=== PATIENT | male | born 1965 | race Caucasian/White ===

== ENCOUNTER 2017-09-14 12:36 | Emergency (ER) | payer MEDICAID ==
[~2017-09-14] VITALS: Ht 188 cm; Wt 84.8 kg
[~2017-09-14 12:36] MED LIST: ALPRAZOLAM; ALPRAZOLAM ER1 MG PO; AUGMENTIN 875875 M1; BACLOFEN; BACLOFEN20 MG PO; BACTRIM DS TAB1 EACH PO; CARAFATE 1 GM TA1 G1 PO; CHANTIX1 MG PO; CITRATE OF MAG296 ML PO; GABAPENTIN; GABAPENTIN 100100 MG; HCTZ; HYDROCODONE-AP1 EAC6 PO; IBUPROFEN 800800 M1 PO; KETOROLAC 0.5% E5 ML OP; LORTAB 5 MG/5001 TA1 PO; LYRICA 50 MG50 MG PO; MEDROLDOSEPACK PO; MIRALAX17 GM PO; MOBIC15 MG PO; MOBIC7.5 MG; NAPROSYN500 MG PO; NASAL SPRAY30 ML; NEURONTIN 300M300 M2 PO; ONDANSETRON HCL4 M2 PO; OXYCONTIN; OXYCONTIN CR 1010 MG PO; OXYCONTIN CR 2020 MG PO; OXYCONTIN10 M1; OXYCONTIN15 MG PO; OXYIR5 MG; PAXIL CR12.5 MG PO; PERCOCET 5-3251 EACH PO; PHENERGAN 25 MG25 M1 PO; PHENERGAN 25 MG25 MG; POLYMYXIN B/TMP10 ML OPHTHALMIC; PRILOSEC40 MG PO; PRINIVIL20 MG PO; RANITIDINE HCL300 M1 PO; ROXICODONE15 M1 PO; ROXICODONE30 M1 PO; SENOKOT-S1 TA1 PO; SKELAXIN 800 M800 M1 PO; VICODIN 5-5001 EACH PO; ZANTAC 150MG T150 MG; ZOFRAN4 MG PO; ZPAK PO
[2017-09-14 12:44] VITALS: BP 139/85
[2017-09-14] MEDS ORDERED: FLONASE 0.05%50 MCG NASAL (12:47)
[2017-09-14] MEDS ORDERED: TESTOSTERONE IM (12:49)
[2017-09-14] MEDS ORDERED: KEFLEX500 M1 PO (13:03)
[2017-09-14] MEDS ORDERED: BACTRIM DS TAB1 EACH PO (13:03)
== END 2017-09-14 13:12 | disposition home or self-care (01) ==
LOC: M.ERS 12:36
DX: L03.012 Cellulitis of left finger (principal); F32.9 Major depressive disorder, single episode, unspecified; M19.90 Unspecified osteoarthritis, unspecified site; G89.29 Other chronic pain; Z85.118 Personal history of other malignant neoplasm of bronchus and lung; Z86.14 Personal history of Methicillin resistant Staphylococcus aureus infection; Z86.19 Personal history of other infectious and parasitic diseases; Z88.8 Allergy status to other drugs, medicaments and biological substances

== ENCOUNTER 2017-11-20 16:47 | Emergency (ER) | payer MEDICAID ==
[~2017-11-20] VITALS: Ht 188 cm; Wt 78.0 kg
[~2017-11-20 16:47] MED LIST changes: +FLONASE 0.05%50 MCG NASAL; +KEFLEX500 M1 PO; +TESTOSTERONE IM
[2017-11-20] MEDS ORDERED: DOXYCYCLINE 10100 MG PO (17:24)
[2017-11-20 17:45] LABS: URINE BILIRUBIN NEGATIVE (Negative); URINE BLOOD NEGATIVE (Negative); URINE CLARITY CLEAR; URINE COLOR YELLOW; URINE GLUCOSE-RANDOM NEGATIVE (Negative); URINE KETONES NEGATIVE (Negative); URINE LEUKOCYTES-REFLEX NEGATIVE (Negative); URINE NITRITE-REFLEX NEGATIVE (Negative); URINE PROTEIN NEGATIVE (Negative); URINE SPECIFIC GRAVITY 1.015 (1.005-1.030); URINE UROBILINOGEN 0.2 E.U./dl (0.2-1.0)
[2017-11-20 18:38] VITALS: BP 117/70
== END 2017-11-20 18:40 | disposition home or self-care (01) ==
LOC: M.ERS 16:47
PROVIDERS: Emergency Medicine Emergency Medical Services
DX: N45.1 Epididymitis (principal); N43.3 Hydrocele, unspecified; F32.9 Major depressive disorder, single episode, unspecified; M19.90 Unspecified osteoarthritis, unspecified site; N40.0 Benign prostatic hyperplasia without lower urinary tract symptoms; Z88.8 Allergy status to other drugs, medicaments and biological substances

== ENCOUNTER 2017-11-23 11:32 | Emergency (ER) | payer MEDICAID ==
[~2017-11-23] VITALS: Ht 190.5 cm; Wt 79.4 kg
[~2017-11-23 11:32] MED LIST changes: +DOXYCYCLINE 10100 MG PO
[2017-11-23 12:02] LABS: ABSOLUTE EOSINOPHILS 0.1 thou/uL (0.0-0.7); ABSOLUTE LYMPHOCYTES 2.1 thou/uL (0.8-5.3); ABSOLUTE MONOCYTES 0.4 thou/uL (0.0-1.2); ABSOLUTE NEUTROPHILS 4.2 thou/uL (1.6-8.1); BASOPHILS 0.5 %; EOSINOPHILS 1.9 %; HEMATOCRIT 45.1 % (42.0-52.0); HEMOGLOBIN 15.3 gm/dL (14.0-18.0); LYMPHOCYTES 30.4 %; MCHC 33.9 g/dL (28.0-37.0); MCV 94.3 fL (80.0-100.0); MONOCYTES 6.1 %; MPV 6.8 fl. (7.2-11.1); NUCLEATED RBCS 0 /100WBC; PLATELET COUNT* 281 thou/uL (150-400); POLYS 61.1 %; RBC 4.78 mil/uL (4.50-6.00); RDW-CV 12.8 % (10.5-14.5); WBC 6.9 thou/uL (4.0-11.0)
[2017-11-23 12:02] LABS: URINE BILIRUBIN NEGATIVE (Negative); URINE BLOOD NEGATIVE (Negative); URINE CLARITY CLEAR; URINE COLOR YELLOW; URINE GLUCOSE-RANDOM NEGATIVE (Negative); URINE KETONES NEGATIVE (Negative); URINE LEUKOCYTES-REFLEX NEGATIVE (Negative); URINE NITRITE-REFLEX NEGATIVE (Negative); URINE PROTEIN NEGATIVE (Negative); URINE UROBILINOGEN 0.2 E.U./dl (0.2-1.0)
[2017-11-23 12:10] LABS: CALCIUM 8.7 mg/dL (8.5-10.1); CREATININE 0.9 mg/dL (0.6-1.3); POTASSIUM 3.9 mmol/L (3.5-5.1)
[2017-11-23 12:15] LABS: ALBUMIN 3.6 g/dL (3.4-5.0); TOTAL BILIRUBIN 0.6 mg/dL (<0.1-1.0); TOTAL PROTEIN 7.3 g/dL (6.4-8.2)
[2017-11-23 14:15] VITALS: BP 95/58
== END 2017-11-23 14:19 | disposition home or self-care (01) ==
LOC: M.ERS 11:32
PROVIDERS: Physician Assistant
DX: N50.811 Right testicular pain (principal); R10.31 Right lower quadrant pain; F32.9 Major depressive disorder, single episode, unspecified; M19.90 Unspecified osteoarthritis, unspecified site; F17.210 Nicotine dependence, cigarettes, uncomplicated; Z86.19 Personal history of other infectious and parasitic diseases; Z85.118 Personal history of other malignant neoplasm of bronchus and lung; Z86.14 Personal history of Methicillin resistant Staphylococcus aureus infection; Z88.8 Allergy status to other drugs, medicaments and biological substances

== ENCOUNTER 2021-06-22 11:47 | Emergency (ER) | payer MEDICAID ==
[~2021-06-22] VITALS: Ht 188 cm; Wt 87.1 kg
[2021-06-22 14:22] LABS: URINE BILIRUBIN NEGATIVE (Negative); URINE BLOOD NEGATIVE (Negative); URINE CLARITY CLEAR; URINE COLOR YELLOW; URINE GLUCOSE-RANDOM NEGATIVE (Negative); URINE KETONES NEGATIVE (Negative); URINE LEUKOCYTES-REFLEX NEGATIVE (Negative); URINE NITRITE-REFLEX NEGATIVE (Negative); URINE PROTEIN NEGATIVE (Negative); URINE SPECIFIC GRAVITY <= 1.005 (1.005-1.030); URINE UROBILINOGEN 0.2 E.U./dl (0.2-1.0)
[2021-06-22 14:25] LABS: ABSOLUTE EOSINOPHILS 0.1 thou/uL (0.0-0.7); ABSOLUTE LYMPHOCYTES 1.7 thou/uL (0.8-5.3); ABSOLUTE MONOCYTES 0.4 thou/uL (0.0-1.2); ABSOLUTE NEUTROPHILS 2.8 thou/uL (1.6-8.1); BASOPHILS 0.8 %; EOSINOPHILS 1.7 %; HEMATOCRIT 44.8 % (42.0-52.0); HEMOGLOBIN 15.3 gm/dL (14.0-18.0); LYMPHOCYTES 33.3 %; MCH 31.9 pg (26.0-34.0); MCHC 34.2 g/dL (28.0-37.0); MCV 93.2 fL (80.0-100.0); MONOCYTES 8.3 %; MPV 7.8 fl. (7.2-11.1); NUCLEATED RBCS 0 /100WBC; PLATELET COUNT* 199 thou/uL (150-400); POLYS 55.9 %; RBC 4.81 mil/uL (4.50-6.00); RDW-CV 12.9 % (10.5-14.5)
[2021-06-22 14:32] LABS: CALCIUM 8.3 mg/dL (8.5-10.1); CREATININE 0.9 mg/dL (0.6-1.3); POTASSIUM 4.2 mmol/L (3.5-5.1)
[2021-06-22 14:36] LABS: ALBUMIN 3.5 g/dL (3.4-5.0); TOTAL BILIRUBIN 0.5 mg/dL (<0.1-1.0); TOTAL PROTEIN 7.1 g/dL (6.4-8.2)
[2021-06-22 15:49] VITALS: BP 113/68
== END 2021-06-22 15:50 | disposition home or self-care (01) ==
LOC: M.ERS 11:47
PROVIDERS: Physician Assistant
DX: K46.9 Unspecified abdominal hernia without obstruction or gangrene (principal); F32.9 Major depressive disorder, single episode, unspecified; M19.90 Unspecified osteoarthritis, unspecified site; F17.210 Nicotine dependence, cigarettes, uncomplicated; Z86.73 Personal history of transient ischemic attack (TIA), and cerebral infarction without residual deficits; Z86.14 Personal history of Methicillin resistant Staphylococcus aureus infection; Z85.118 Personal history of other malignant neoplasm of bronchus and lung; Z79.2 Long term (current) use of antibiotics; Z79.899 Other long term (current) drug therapy; Z88.8 Allergy status to other drugs, medicaments and biological substances

== ENCOUNTER 2021-07-02 12:49 | Emergency (ER) | payer MEDICAID ==
[~2021-07-02] VITALS: Ht 188 cm; Wt 87.1 kg
[2021-07-02] MEDS ORDERED: OXYCONTIN20 M1 PO (13:08)
[2021-07-02] MEDS ORDERED: TESTOSTERONE CYPIONA (13:09)
[2021-07-02] MEDS ORDERED: PROAIR HFA8.5 GM INH (13:09)
[2021-07-02] MEDS ORDERED: PROPRANOLOL 20M20 M1 PAD (13:09)
[2021-07-02] MEDS ORDERED: NORVASC5 MG PO (13:10)
[2021-07-02] MEDS ORDERED: PERCOCET 5-3251 EACH PO (13:10)
[2021-07-02] MEDS ORDERED: MOMETASONE FURO17 GM NASAL (13:10)
[2021-07-02 13:56] LABS: URINE BILIRUBIN NEGATIVE (Negative); URINE BLOOD NEGATIVE (Negative); URINE CLARITY CLEAR; URINE COLOR YELLOW; URINE GLUCOSE-RANDOM NEGATIVE (Negative); URINE KETONES NEGATIVE (Negative); URINE LEUKOCYTES NEGATIVE (Negative); URINE NITRITE NEGATIVE (Negative); URINE PROTEIN NEGATIVE (Negative); URINE SPECIFIC GRAVITY 1.025 (1.005-1.030); URINE UROBILINOGEN 0.2 E.U./dl (0.2-1.0)
[2021-07-02 14:35] LABS: ABSOLUTE BASOPHILS 0.1 thou/uL (0.0-0.2); ABSOLUTE EOSINOPHILS 0.1 thou/uL (0.0-0.7); ABSOLUTE LYMPHOCYTES 1.8 thou/uL (0.8-5.3); ABSOLUTE MONOCYTES 0.8 thou/uL (0.0-1.2); ABSOLUTE NEUTROPHILS 3.7 thou/uL (1.6-8.1); EOSINOPHILS 1.9 %; HEMOGLOBIN 15.6 gm/dL (14.0-18.0); LYMPHOCYTES 28.4 %; MCV 94.2 fL (80.0-100.0); MONOCYTES 12.2 %; MPV 7.9 fl. (7.2-11.1); NUCLEATED RBCS 0 /100WBC; PLATELET COUNT* 147 thou/uL (150-400); POLYS 56.5 %; RBC 4.89 mil/uL (4.50-6.00); RDW-CV 12.9 % (10.5-14.5); WBC 6.5 thou/uL (4.0-11.0)
[2021-07-02 14:54] LABS: CALCIUM 8.7 mg/dL (8.5-10.1); CREATININE 0.9 mg/dL (0.6-1.3)
[2021-07-02 14:59] LABS: ALBUMIN 3.7 g/dL (3.4-5.0); TOTAL BILIRUBIN 0.4 mg/dL (<0.1-1.0); TOTAL PROTEIN 7.4 g/dL (6.4-8.2)
[2021-07-02 16:32] VITALS: BP 120/79
== END 2021-07-02 16:33 | disposition home or self-care (01) ==
LOC: M.ERS 12:49
PROVIDERS: Emergency Medicine Emergency Medical Services
DX: G89.18 Other acute postprocedural pain (principal); R10.33 Periumbilical pain; B19.20 Unspecified viral hepatitis C without hepatic coma; I10 Essential (primary) hypertension; J44.9 Chronic obstructive pulmonary disease, unspecified; M19.90 Unspecified osteoarthritis, unspecified site; F32.9 Major depressive disorder, single episode, unspecified; F17.210 Nicotine dependence, cigarettes, uncomplicated; Z98.890 Other specified postprocedural states; Z79.51 Long term (current) use of inhaled steroids; Z79.899 Other long term (current) drug therapy; Z88.8 Allergy status to other drugs, medicaments and biological substances

== ENCOUNTER 2021-07-04 08:31 | Emergency (ER) | payer MEDICAID ==
[~2021-07-04] VITALS: Ht 188 cm; Wt 81.7 kg
[~2021-07-04 08:31] MED LIST changes: +MOMETASONE FURO17 GM NASAL; +NORVASC5 MG PO; +OXYCONTIN20 M1 PO; +PROAIR HFA8.5 GM INH; +PROPRANOLOL 20M20 M1 PAD; +TESTOSTERONE CYPIONA
[2021-07-04 09:23] LABS: ABSOLUTE EOSINOPHILS 0.1 thou/uL (0.0-0.7); ABSOLUTE LYMPHOCYTES 1.4 thou/uL (0.8-5.3); ABSOLUTE MONOCYTES 0.6 thou/uL (0.0-1.2); ABSOLUTE NEUTROPHILS 4.6 thou/uL (1.6-8.1); BASOPHILS 0.6 %; EOSINOPHILS 1.6 %; HEMATOCRIT 45.1 % (42.0-52.0); HEMOGLOBIN 15.5 gm/dL (14.0-18.0); LYMPHOCYTES 20.2 %; MCH 32.1 pg (26.0-34.0); MCHC 34.4 g/dL (28.0-37.0); MCV 93.3 fL (80.0-100.0); MONOCYTES 8.8 %; MPV 7.5 fl. (7.2-11.1); NUCLEATED RBCS 0 /100WBC; PLATELET COUNT* 213 thou/uL (150-400); POLYS 68.8 %; RBC 4.83 mil/uL (4.50-6.00); WBC 6.7 thou/uL (4.0-11.0)
[2021-07-04 09:27] LABS: CALCIUM 8.2 mg/dL (8.5-10.1); CREATININE 0.9 mg/dL (0.6-1.3); POTASSIUM 4.2 mmol/L (3.5-5.1)
[2021-07-04 09:31] LABS: ALBUMIN 3.6 g/dL (3.4-5.0); TOTAL BILIRUBIN 0.5 mg/dL (<0.1-1.0); TOTAL PROTEIN 7.2 g/dL (6.4-8.2)
[2021-07-04 10:10] VITALS: BP 118/86
--- NOTE | 2021-07-04 10:12 | EKG ---
[place] [address] ELECTROCARDIOGRAM REPORT Name: JAN RAMÍREZ Room: [facility]#: [id number] Admission: 07/04/21 Attend Phys: Discharge: 07/04/21 Date of : 69 Date of Service: 07/04/21923 Report #: [id number] THIS REPORT FOR: //name// [facility] ED Test Date: 2021-07-04 Test Time: 09:24:58 Pat Name: JAN RAMÍREZ Department: Room: Gender: Main [employer]ier: PHILLY : 1965 Requested By: Garry Denise Order Number: [id number] MD: Romel Dean Measurements Intervals [place] Rate: 78 P: 37 NE: 183 QRS: 16 QRSD: 93 T: 42 QT: 361 QTc: 412 Interpretive Statements Sinus rhythm Consider left atrial enlargement septal infarct, age indeterminate Compared to ECG 12/27/2015 20:14:28 Myocardial infarct finding now present Electronically Signed On 07-04-2021 10:12:04 [employer] by Romel Dean [email or web address] <ELECTRONICALLY SIGNED> By: Romel Dean MD, [facility] 07/04/21 1012 0924 0924 Romel Dean MD, [facility] /EPI
== END 2021-07-04 10:11 | disposition home or self-care (01) ==
LOC: M.ERS 08:31
PROVIDERS: Family Medicine
DX: K62.5 Hemorrhage of anus and rectum (principal); R11.2 Nausea with vomiting, unspecified; R10.32 Left lower quadrant pain; F32.9 Major depressive disorder, single episode, unspecified; M19.90 Unspecified osteoarthritis, unspecified site; F17.210 Nicotine dependence, cigarettes, uncomplicated; Z86.73 Personal history of transient ischemic attack (TIA), and cerebral infarction without residual deficits; Z86.14 Personal history of Methicillin resistant Staphylococcus aureus infection; Z85.118 Personal history of other malignant neoplasm of bronchus and lung; Z79.899 Other long term (current) drug therapy; Z88.8 Allergy status to other drugs, medicaments and biological substances; Z98.890 Other specified postprocedural states